=== PATIENT | female | born 1935 | race Caucasian/White ===

== ENCOUNTER → 2019-06-22 09:36 | Outpatient (CLI) | payer BC, SELFPAY ==
--- NOTE | ~2019-06-22 | XR_ITS ---
XR wrist LT min 3V 06/22/2019 09:59 Indication: Left wrist pain Procedure: 4 views left wrist Comparison: No prior studies for comparison. 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 Osteopenia. No acute fracture or traum atic malalignment. Scaphoid is grossly intact. No significant soft tissue abnormality. No radiopaque foreign bodies. Impression: 1: Mild-moderate polyarticular osteoarthritis. Reviewed, dictated and finalized at location B. LY CATALOGUER Impression: 1: Mild-moderate polyarticular osteoarthritis.
== END ==
PROVIDERS: PCP Family Medicine Adolescent Medicine; Visit Provider Family Medicine Adolescent Medicine
DX: M15.9 Polyosteoarthritis, unspecified (principal)
CPT/HCPCS: 73110

== ENCOUNTER 2021-02-11 08:00 | Outpatient (RCR) | payer BC, SELFPAY ==
--- NOTE | 2020-11-24 16:15 | PTOPEVAL ---
PHYSICAL THERAPY EVALUATION AND PLAN OF CARE 11-24-20 Thank you for referring Betsy Carrion to [facility] for the diagnosis of BPPV. Mrs. Carrion is scheduled to be seen for therapy? 0-2 x/week for 6 weeks, determined by her vestibular symptoms. Please review, sign, date and return this plan of care LILY. I agree with and certify that the following plan of care is medically necessary. Referring Physician Date Attending Provider: Hunter Hoffman MD *PT Outpatient Evaluation Document 11/24/20 15:10 LOLI (Rec: 11/24/20 16:15 LOLI [id number]) Past Medical History Source of Past Medical History Patient Neurological History Hx Neurological Disorders No Significant History Cardiovascular History Hx Cardiac Disorders No Significant History Respiratory History Hx Respiratory Disorders No Significant History Gastrointestinal History Hx Gastrointestinal Disorders No Significant History Genitourinary History Hx Genitourinary Disorders No Significant History Musculoskeletal History Hx Back Pain Yes: when over do it Hematological History Hx Hematological Disorders No Significant History Endocrine History Hx Endocrine Disorders No Significant History HEENT History Hx Sinus Problems Yes: seasonal allergies Integumentary History Hx Skin Disorders No Significant History Reproductive History Hx Hysterectomy Yes Evaluation Information Problem Diagnosis BPPV Onset November 03, 2020 Prior Level of Function Activity Level (Last 3 Months) Hand Dominance Right Activity of Daily Living Ability Independent Indoor/Home Mobility Independent Community Mobility Independent Stairs Ability Independent Functional Cognition (Planning, Shopping Independent , Taking Medications) Cooking Yes Cleaning Yes Laundry Yes Shopping Yes Driving Yes Home Setting Home Type House Living Situation Alone Mobility Assistive Devices (Used Last 3 None Months) Comments Additional Prior Level of Function active lifestyle, walks about Comments 6 miles/day for exercise; does all in home and outside yard work; Pain Assessment Timing of Pain Assessment Timing of Pain Assessment Assessment Self Report Self Report Pain Level 0 Pain Score Pain Score 0: Self Report Cervical and Lumbar ROM Cervical ROM Cervical ROM Comments sitting cervical AROM is WNL and no neck pain Gait Assessment Gait Assessment Ambulation Assistive
--- NOTE | 2021-01-06 08:57 | PTOPEVAL ---
PHYSICAL THERAPY REEVALUATION AND UPDATED PLAN OF CARE 01-06-21 Refer to the clinical summary below for her status with today's reeval, compared to the initial evaluation. The goals were not achieved; she had only 3 PT sessions, due to scheduling issues and her being out of town. Continue PT treatment 1x/week for 5 weeks. Thank you for referring Betsy Carrion to [facility].? Please review, sign, date and return this plan of care [facility]. I agree with and certify that the following plan of care is medically necessary. Referring Physician Date Attending Provider: Hunter Hoffman MD Document 01/06/21 08:05 LOLI (Rec: 01/06/21 08:57 LOLI [id number]) Assessment Status Re-evaluation Subjective Information Betsy reports: severity of Query Text:As Reported By Patient/ dizziness is less than it was; Family everytime turn head to the L it starts; most of the time during day--do not have any issues, happens at night and when in bed; am able to cut grass, do grocery shopping and play cards with friends [place] without any problems; doing the exercise at home, nausea and problems with head to the L side; frustrated and depressed about this covid situation and when weather is bad and shut in the house with dreary weather; Pain Assessment Timing of Pain Assessment Timing of Pain Assessment Assessment Self Report Self Report Pain Level 0 Pain Score Pain Score 0: Self Report Vestibular Evaluation Vestibular Medical Information Other Symptoms Comments reports symptoms as dizzy, nausea; sometimes symptoms more intense than other times; continue to have sinus problems and drainage in throat, worse in the mornings; Standardized Tests Dizziness Handicap Inventory Standardized Test Scores (Number 0-100) 28 Vestibular Testing Smooth Pursuits Normal Gaze Stabilization with Fixation WNL Vestibular Testing Comments -sitting: gaze stabilization with head turn R/L- slow and guarded with initially difficulty maintaining eyes stable; with head up/down, slow and guarded; no s/s; - Eply maneuver performed: to L: rep 1- nystagmus and
--- NOTE | 2021-02-11 08:42 | PTOPEVAL ---
PHYSICAL THERAPY DISCHARGE 02-11-21 Refer to the clinical summary below for her status today, compared to the last reeval. The goals were partially achieved; discharge PT services. Thank you for referring Betsy Carrion to [facility].? Please review, sign, date and return this discharge LILY. I agree with and certify that the following plan of care is medically necessary. Referring Physician Date Attending Provider: Hunter Hoffman MD Document 02/11/21 08:00 LOLI (Rec: 02/11/21 08:42 LOLI [id number]) Assessment Status Discharge Subjective Information Betsy reports: vertigo is alot Query Text:As Reported By Patient/ better-- only have when look Family up and to the L side, stops pretty fast; sometimes get when moving in bed-roll to side and get up out of bed, clears in few seconds; neck hurts a little, but better now heat is on in the house and not cold anymore; back part of L shoulder hurts, but better when move around; is doing her exercises every day, 1-2 x; wants to go over the theracane use again; Pain Assessment Timing of Pain Assessment Timing of Pain Assessment Assessment Pain Scale Pain Scale Used Numeric (1 - 10) Self Report Pain Assessment Bilateral Neck Reported Pain Level 2 Pain Description Tightness Pain Frequency Chronic,Intermittent Other Pain Description tight and stiff in neck and L upper thoracic area; Lowest Pain Intensity 0 Greatest Pain Intensity 4 Other Pain Aggravating Factors when cold, when wake up in the morning Pain Behaviors Anxious,Guarding Pain Score Pain Score 2: Self Report Additional Pain Score Comments using heating pad on neck; not taking any meds for neck pain; do not have headaches; use of occipital release tool for self massage- issued picture and name for her to purchase for home use; Interventions Used Interventions Used By Clinicians Education,Exercise Pain Relief Interventions Used By Exercise,Heat Patient Other Alleviating Interventions theracane--brought her's in- performed and reviewed use for trigger points Vestibul
== END 2021-02-11 15:30 | disposition home or self-care (01) ==
LOC: ANHPT 08:00
PROVIDERS: PCP Family Medicine Adolescent Medicine; Visit Provider Family Medicine Adolescent Medicine
DX: H81.10 Benign paroxysmal vertigo, unspecified ear (principal)
CPT/HCPCS: 97110; 97140; 97161